=== PATIENT | female | born 1945 | race Hispanic/Latino ===

== ENCOUNTER 2017-08-10 22:16 | Emergency (ER) | payer BC, MEDICARE ==
[2017-08-10 23:08] LABS: BASOPHILS % (AUTO) 0.6 % (0.0-5.0); EOSINOPHILS % (AUTO) 0.8 % (0.0-8.0); HEMATOCRIT 38.4 % (36-48); LYMPHOCYTES % (AUTO) 19.1 % (21.0-51.0); MEAN CORPUSCULAR HEMOGLOBIN 29.9 pg (27.0-33.0); MEAN CORPUSCULAR HGB CONC 34.1 g/dL (32.0-36.0); MEAN CORPUSCULAR VOLUME 87.7 fL (79-99); MONOCYTES % (AUTO) 12.3 % (3.0-13.0); NEUTROPHILS % (AUTO) 67.2 % (40.0-77.0); PLATELET COUNT (AUTO) 292 K/uL (130-400); RED BLOOD CELL COUNT(AUTO) 4.38 MIL/uL (4.00-5.50); WHITE BLOOD COUNT (AUTO) 7.7 K/uL (4.8-10.8)
[2017-08-10 23:08] LABS: APPEARANCE,URINE Clear (CLEAR); BILIRUBIN,URINE Negative (NEGATIVE); COLOR,URINE Yellow (YELLOW); GLUCOSE, URINE (UA) Negative (NEGATIVE); KETONES,URINE Trace mg/dL (NEGATIVE); LEUKOCYTE ESTERASE ,URINE Negative (NEGATIVE); NITRATE,URINE Negative (NEGATIVE); OCCULT BLOOD,URINE Negative (NEGATIVE); PROTEIN,URINE POS 1+ (NEGATIVE)
[2017-08-10] MEDS ORDERED: ONDANSETRON HCL 4 MG/2 ML VIAL ONE (23:16)
[2017-08-10] MEDS ORDERED: MORPHINE SULFATE 2 MG/ML 1ML SYG ONE (23:17)
[2017-08-10 23:20] LABS: BACTERIA,URINE Rare /HPF (None Seen); RBC,URINE None Seen /HPF (0-1)
[2017-08-10 23:22] LABS: POTASSIUM 3.2 mmol/L (3.5-5.1)
[2017-08-10 23:26] LABS: ALBUMIN 3.4 g/dL (3.5-5.0); BILIRUBIN,TOTAL 0.6 mg/dL (0.2-1.0); TOTAL PROTEIN, SERUM 7.5 g/dL (6.0-8.3)
[2017-08-11] MEDS ORDERED: SODIUM CHLORIDE 0.9% 1000ML 1,000 ML IV ONE (00:14)
[2017-08-11] MEDS ORDERED: POTASSIUM BICARB/CIT AC 25 MEQ TABLET.EFF ONE (00:15)
[2017-08-11] MEDS ORDERED: LIDOCAINE 5% TOPICAL PATCH TP ONE (02:45)
== END 2017-08-11 02:59 | disposition home or self-care (01) ==
LOC: EDH 22:16
DX: E87.6 Hypokalemia (principal); R10.9 Unspecified abdominal pain; M06.9 Rheumatoid arthritis, unspecified; J44.9 Chronic obstructive pulmonary disease, unspecified; I10 Essential (primary) hypertension; M32.9 Systemic lupus erythematosus, unspecified
CPT/HCPCS: 36415; 76700; 80053; 81001; 83690; 85025; 87088; 96361; 96374; 96375; 99285; J2405; J7030

== ENCOUNTER 2023-06-01 19:22 | Inpatient (IN) | payer OTHER ==
[~2023-06-01] VITALS: Ht 157.5 cm; Wt 107.4 kg
[~2023-06-01 19:22] MED LIST: CLON0.5T4 PO; DULO60CA64 PO; FOLI0.8T3 PO; LEFL20TA18 PO; LOSA100T59 PO; LOVA10TA2 PO; MAG OXIDE PO; METO50TA18 PO; OMEP20CA12 PO; PILOCARPINE; PRED5TAB PO; SULF1TAB42 PO; TIZA-211 PO; TOFA11TA PO
[2023-06-01 20:02] LABS: BASOPHILS # (AUTO) 0.06 K/uL (0.00-0.20); BASOPHILS % (AUTO) 0.3 % (0.0-5.0); EOSINOPHILS # (AUTO) 0.14 K/uL (0.00-0.70); EOSINOPHILS % (AUTO) 0.8 % (0.0-8.0); HEMATOCRIT 33.3 % (36-48); IMMATURE GRANULOCYTE ABSOLUTE 0.34 K/uL (0-1); LYMPHOCYTES # (AUTO) 1.2 K/uL (1.0-4.8); LYMPHOCYTES % (AUTO) 6.6 % (21.0-51.0); MEAN CORPUSCULAR HEMOGLOBIN 31.1 pg (27.0-33.0); MEAN CORPUSCULAR HGB CONC 33.6 g/dL (32.0-36.0); MEAN CORPUSCULAR VOLUME 92.5 fL (79-99); MONOCYTES % (AUTO) 5.4 % (3.0-13.0); NEUTROPHILS # (AUTO) 14.8 K/uL (1.8-7.7); PLATELET COUNT (AUTO) 313 K/uL (130-400); RED CELL DISTRIBUTION WIDTH 13.6 % (11.0-15.5); WHITE BLOOD COUNT (AUTO) 17.5 K/uL (4.8-10.8)
[2023-06-01 20:17] LABS: INR 0.94 (0.85-1.15)
[2023-06-01 20:19] LABS: PARTIAL THROMBOPLASTIN TIME 27.7 SEC (26.3-35.5)
[2023-06-01] MEDS ORDERED: VANCOMYCIN 1G/250ML KIT 250 ML IV ONE (20:29)
[2023-06-01] MEDS ORDERED: ZOSYN 3.375GM+NS 50ML 50 ML ONE (20:29)
[2023-06-01] MEDS ORDERED: ZOSYN 3.375GM +NS 50ML IV ONE (20:30)
[2023-06-01] MEDS ORDERED: 0.9%NACL 1000ML 2,500 ML IV ONE (20:30)
[2023-06-01] MEDS ORDERED: VANCOMYCIN KIT 1 GM/250 ML IV.KIT IV ONE (20:30)
[2023-06-01 21:08] LABS: ALBUMIN 2.8 g/dL (3.5-5.0); BILIRUBIN,TOTAL 0.4 mg/dL (0.2-1.0); CREATININE 2.1 mg/dL (0.5-1.5); MAGNESIUM 1.6 mg/dL (1.80-2.40); POTASSIUM 5.1 mmol/L (3.5-5.1); TOTAL PROTEIN, SERUM 7.5 g/dL (6.0-8.3)
[2023-06-01] MEDS ORDERED: HYDRALAZINE 20MG/ML VIAL IV PRN (22:00)
[2023-06-01] MEDS ORDERED: VANCOMYCIN PROTOCOL PER PHARMACY IV SCH (22:00)
[2023-06-01 23:00] VITALS: BP 132/41; PULSE 60; RESP 16
[2023-06-01] MEDS ORDERED: ACETAMINOPHEN 500 MG TABLET PO ONE (23:00)
[2023-06-01] MEDS ORDERED: MAGNESIUM 2GM PREMIX 50ML 50 ML IV SCH (23:00)
[2023-06-01] MEDS: LACTATED RINGERS 1000ML 1,000 ML IV SCH (23:19)
[2023-06-01 23:50] VITALS: BP 96/51; PULSE 100; RESP 18; O2SAT 96
[2023-06-02] VITALS (7 sets, daily range): BP systolic 114–131; BP diastolic 60–78; PULSE 77–114; RESP 20–22; O2SAT 94–95
[2023-06-02] MEDS ORDERED: LOSA100T59 PO (00:24)
[2023-06-02] MEDS ORDERED: SPIR25TA6 PO (00:24)
[2023-06-02] MEDS ORDERED: HYDR200T75 PO (00:24)
[2023-06-02] MEDS ORDERED: CLIN-141 PO (00:24)
[2023-06-02] MEDS ORDERED: CLON0.122 PO (00:24)
[2023-06-02] MEDS ORDERED: DULO60CA64 PO (00:24)
[2023-06-02] MEDS ORDERED: PILOCARPINE PO (00:24)
[2023-06-02] MEDS ORDERED: METO50TA18 PO (00:24)
[2023-06-02] MEDS ORDERED: HYDROCHLOROTHIAZIDE PO (00:24)
[2023-06-02] MEDS ORDERED: PRED5TAB PO (00:24)
[2023-06-02] MEDS ORDERED: TIZA-211 PO (00:24)
[2023-06-02] MEDS ORDERED: LOVA10TA2 PO (00:24)
[2023-06-02] MEDS: ZOSYN 3.375GM+NS 50ML 50 ML IV SCH ×2 (05:14→17:52)
[2023-06-02] MEDS ORDERED: MORPHINE 2 MG SYG IVP ONE ×2 (05:30→12:00)
[2023-06-02 05:34] LABS: APPEARANCE,URINE CLEAR (CLEAR); BILIRUBIN,URINE NEGATIVE (NEGATIVE); COLOR,URINE LIGHT-YELLOW (YELLOW); GLUCOSE, URINE (UA) NEGATIVE (NEGATIVE); KETONES,URINE NEGATIVE (NEGATIVE); LEUKOCYTE ESTERASE ,URINE 250 Leu/uL (NEGATIVE); NITRATE,URINE NEGATIVE (NEGATIVE); OCCULT BLOOD,URINE NEGATIVE (NEGATIVE); PROTEIN,URINE NEGATIVE (NEGATIVE); UROBILINOGEN,URINE 0.2 mg/dL (0.2-1.0)
[2023-06-02 06:24] LABS: BACTERIA,URINE RARE /HPF (None Seen); NON-SQUAMOUS EPITHELIAL CELL 1 /HPF (0-2); SQUAMOUS EPITHELIAL CELL,UR FEW /HPF (0-2); UNCLASSIFIED CRYSTAL 2 /HPF (None Seen)
[2023-06-02] MEDS ORDERED: VANCOMYCIN 500MG+NS 100ML 100 ML IV ONE (06:50)
[2023-06-02] MEDS: LACTATED RINGERS 1000ML 1,000 ML IV SCH (08:00)
[2023-06-02] MEDS ORDERED: HYDROCODONE/ACETAMINOPHEN 5/325 MG TAB PO PRN (08:00)
[2023-06-02] MEDS ORDERED: PHARMACY COMMUNICATION MISC SCH (08:00)
[2023-06-02] MEDS ORDERED: KETOROLAC 15MG/ML VIAL (15MG/ML) IV PRN (08:00)
[2023-06-02] MEDS: ONDANSETRON 4MG INJ IVP PRN (08:26)
[2023-06-02] MEDS ORDERED: HYDROCODONE/ACETAMINOPHEN 10/325 MG TAB PO PRN ×2 (08:30→12:00)
[2023-06-02] MEDS: ENOXAPARIN SODIUM 30 MG/0.3 ML SQ SCH ×2 (08:31→23:53)
[2023-06-02] MEDS: FAMOTIDINE 20MG TAB PO SCH ×2 (08:31→20:14)
[2023-06-02] MEDS ORDERED: FAMOTIDINE 20MG VIAL IV SCH (09:00)
[2023-06-02] MEDS ORDERED: MORPHINE 2 MG SYG ONE (11:59)
[2023-06-02] MEDS ORDERED: IOHEXOL-350 75 ML VIAL IV ONE (15:32)
[2023-06-03] VITALS (33 sets, daily range): BP systolic 105–155; BP diastolic 43–82; PULSE 76–113; RESP 17–26; O2SAT 95–99
[2023-06-03] MEDS: ZOSYN 3.375GM+NS 50ML 50 ML IV SCH ×3 (04:04→20:05)
[2023-06-03] MEDS: LACTATED RINGERS 1000ML 1,000 ML IV SCH ×2 (04:05→14:41)
[2023-06-03 04:20] LABS: INR 0.98 (0.85-1.15); PROTHROMBIN TIME 11.4 SEC (9.6-11.6)
[2023-06-03 04:21] LABS: PARTIAL THROMBOPLASTIN TIME 33.9 SEC (26.3-35.5)
[2023-06-03] MEDS: ALBUTEROL 0.083% 2.5 MG/3 ML INH IH PRN ×3 (04:37→14:09)
[2023-06-03 05:48] LABS: BASOPHILS # (AUTO) 0.08 K/uL (0.00-0.20); BASOPHILS % (AUTO) 0.4 % (0.0-5.0); EOSINOPHILS # (AUTO) 0.15 K/uL (0.00-0.70); EOSINOPHILS % (AUTO) 0.8 % (0.0-8.0); HEMATOCRIT 30.1 % (36-48); IMMATURE GRANULOCYTE ABSOLUTE 0.27 K/uL (0-1); LYMPHOCYTES # (AUTO) 0.5 K/uL (1.0-4.8); LYMPHOCYTES % (AUTO) 2.6 % (21.0-51.0); MEAN CORPUSCULAR HEMOGLOBIN 31.2 pg (27.0-33.0); MEAN CORPUSCULAR HGB CONC 32.2 g/dL (32.0-36.0); MEAN CORPUSCULAR VOLUME 96.8 fL (79-99); MONOCYTES # (AUTO) 1.4 K/uL (0.1-1.0); MONOCYTES % (AUTO) 7.3 % (3.0-13.0); NEUTROPHILS # (AUTO) 16.9 K/uL (1.8-7.7); NEUTROPHILS % (AUTO) 87.5 % (40.0-77.0); PLATELET COUNT (AUTO) 272 K/uL (130-400); RED BLOOD CELL COUNT(AUTO) 3.11 MIL/uL (4.00-5.50); RED CELL DISTRIBUTION WIDTH 14.4 % (11.0-15.5); WHITE BLOOD COUNT (AUTO) 19.3 K/uL (4.8-10.8)
[2023-06-03 06:20] LABS: ALBUMIN 2.3 g/dL (3.5-5.0); BILIRUBIN,TOTAL 0.3 mg/dL (0.2-1.0); CREATININE 2.3 mg/dL (0.5-1.5); POTASSIUM 5.7 mmol/L (3.5-5.1); TOTAL PROTEIN, SERUM 6.6 g/dL (6.0-8.3)
[2023-06-03 06:43] LABS: BAND NEUTROPHILS % (MANUAL) 2 % (0-2); BASOPHILS % (MANUAL) 1 % (0-2); EOSINOPHILS % (MANUAL) 1 % (1-6); LYMPHOCYTES % (MANUAL) 6 % (22-44); MAN.DIFF COMMENT-IMPRESSION MANUAL DIFFERENTIAL; MONOCYTES % (MANUAL) 6 % (2-9); PLATELET MORPHOLOGY COMMENT ADEQUATE; SEGMENTED NEUTROPHILS % 84 % (40-70); TOTAL CELLS COUNTED 100; WBC MORPHOLOGY VACUOLATION 1+
[2023-06-03] MEDS ORDERED: MORPHINE 2 MG SYG IVP ONE (07:00)
[2023-06-03] MEDS ORDERED: SOLU-MEDROL 125MG VIAL IVP ONE (07:00)
[2023-06-03] MEDS: FAMOTIDINE 20MG TAB PO SCH ×2 (08:11→20:05)
[2023-06-03] MEDS: KAYEXALATE 15GM/60ML PO ONE ×2 (10:21→19:10)
[2023-06-03] MEDS ORDERED: FAMOTIDINE 20MG VIAL IV ONE (11:22)
[2023-06-03] MEDS ORDERED: PROPOFOL 10 MG/ML 20ML VIAL IV ONE (11:26)
[2023-06-03] MEDS ORDERED: FENTANYL CITRATE PF 50 MCG/1 ML 2ML VIAL ONE ×2 (11:26→14:07)
[2023-06-03] MEDS ORDERED: MIDAZOLAM HCL 1 MG/ML 2ML VIAL ONE (11:26)
[2023-06-03] MEDS ORDERED: LIDOCAINE PF 100MG/5ML (2%) SYRINGE 5ML ONE (11:26)
[2023-06-03] MEDS ORDERED: ROCURONIUM 10MG/1ML SYR 10 MG/ML ML ONE (11:36)
[2023-06-03] MEDS ORDERED: CLINDAMYCIN IVPB 600MG/50ML 50 ML IV ONE (12:13)
[2023-06-03] MEDS ORDERED: ONDANSETRON 4MG INJ ONE (12:20)
[2023-06-03] MEDS ORDERED: NEOSTIGMINE METHYLSULFATE 1MG/ML IV ONE (12:31)
[2023-06-03] MEDS ORDERED: GLYCOPYRROLATE 1 MG/5 ML SYRINGE ONE (12:45)
[2023-06-03] MEDS ORDERED: IPRATROPIUM/ALBUTEROL SULFATE 3 ML SOLUTION IH ONE (13:35)
[2023-06-03] MEDS: SODIUM CHLORIDE 1,000 MG TAB PO SCH ×2 (14:00→20:05)
[2023-06-03] MEDS ORDERED: VANCOMYCIN 1G/250ML KIT 250 ML IV SCH (20:00)
[2023-06-03] MEDS: ACETAMINOPHEN 325 MG TAB PO PRN (20:13)
[2023-06-04] VITALS (9 sets, daily range): BP systolic 126–161; BP diastolic 68–83; PULSE 89–106; RESP 16–20; O2SAT 95–97
[2023-06-04 04:50] LABS: BASOPHILS # (AUTO) 0.04 K/uL (0.00-0.20); BASOPHILS % (AUTO) 0.2 % (0.0-5.0); EOSINOPHILS # (AUTO) 0.22 K/uL (0.00-0.70); EOSINOPHILS % (AUTO) 0.9 % (0.0-8.0); HEMATOCRIT 27.3 % (36-48); IMMATURE GRANULOCYTE ABSOLUTE 0.62 K/uL (0-1); LYMPHOCYTES # (AUTO) 0.2 K/uL (1.0-4.8); LYMPHOCYTES % (AUTO) 0.8 % (21.0-51.0); MEAN CORPUSCULAR HEMOGLOBIN 31.1 pg (27.0-33.0); MEAN CORPUSCULAR HGB CONC 32.6 g/dL (32.0-36.0); MEAN CORPUSCULAR VOLUME 95.5 fL (79-99); MONOCYTES # (AUTO) 0.5 K/uL (0.1-1.0); NEUTROPHILS # (AUTO) 24.3 K/uL (1.8-7.7); NEUTROPHILS % (AUTO) 93.7 % (40.0-77.0); NUCLEATED RED BLOOD CELLS 0.1 % (0.0-0.19); PLATELET COUNT (AUTO) 290 K/uL (130-400); RED BLOOD CELL COUNT(AUTO) 2.86 MIL/uL (4.00-5.50); RED CELL DISTRIBUTION WIDTH 14.4 % (11.0-15.5); WHITE BLOOD COUNT (AUTO) 25.9 K/uL (4.8-10.8)
[2023-06-04 05:13] LABS: ALBUMIN 2.1 g/dL (3.5-5.0); BILIRUBIN,TOTAL 0.2 mg/dL (0.2-1.0); CREATININE 3.3 mg/dL (0.5-1.5); POTASSIUM 5.3 mmol/L (3.5-5.1); TOTAL PROTEIN, SERUM 6.5 g/dL (6.0-8.3)
[2023-06-04] MEDS: LACTATED RINGERS 1000ML 1,000 ML IV SCH (05:25)
[2023-06-04] MEDS: ZOSYN 3.375GM+NS 50ML 50 ML IV SCH ×2 (08:17→21:13)
[2023-06-04] MEDS: ENOXAPARIN SODIUM 30 MG/0.3 ML SQ SCH (08:18)
[2023-06-04] MEDS: FAMOTIDINE 20MG TAB PO SCH ×2 (08:19→21:12)
[2023-06-04] MEDS: SODIUM CHLORIDE 1,000 MG TAB PO SCH ×3 (08:27→21:12)
[2023-06-05] VITALS (9 sets, daily range): BP systolic 130–138; BP diastolic 66–78; PULSE 70–107; RESP 18–21; O2SAT 92–98
[2023-06-05] MEDS: LACTATED RINGERS 1000ML 1,000 ML IV SCH (01:11)
[2023-06-05] MEDS: ACETAMINOPHEN 325 MG TAB PO PRN (01:12)
[2023-06-05] MEDS: CEFEPIME HCL 1 GM VIAL IVPB SCH (08:44)
[2023-06-05] MEDS: ENOXAPARIN SODIUM 30 MG/0.3 ML SQ SCH (08:51)
[2023-06-05] MEDS: DULOXETINE HCL 30 MG CAP PO SCH ×2 (08:53→21:00)
[2023-06-05] MEDS: BENZONATATE 100 MG CAPSULE PO SCH ×2 (08:53→17:08)
[2023-06-05] MEDS: SODIUM CHLORIDE 1,000 MG TAB PO SCH ×4 (08:54→21:20)
[2023-06-05] MEDS: PILOCARPINE HCL 5 MG TABLET PO SCH ×4 (08:54→21:20)
[2023-06-05] MEDS: FAMOTIDINE 20MG TAB PO SCH (08:54)
[2023-06-05 08:57] LABS: HEMATOCRIT 25.9 % (36-48); MEAN CORPUSCULAR HEMOGLOBIN 31.2 pg (27.0-33.0); MEAN CORPUSCULAR HGB CONC 33.2 g/dL (32.0-36.0); MEAN CORPUSCULAR VOLUME 93.8 fL (79-99); NUCLEATED RED BLOOD CELLS 0.1 % (0.0-0.19); RED BLOOD CELL COUNT(AUTO) 2.76 MIL/uL (4.00-5.50); RED CELL DISTRIBUTION WIDTH 14.6 % (11.0-15.5); WHITE BLOOD COUNT (AUTO) 21.8 K/uL (4.8-10.8)
[2023-06-05] MEDS ORDERED: LOSARTAN 100 MG TABLET PO SCH (09:00)
[2023-06-05 09:09] LABS: CREATININE 3.9 mg/dL (0.5-1.5); POTASSIUM 4.6 mmol/L (3.5-5.1)
[2023-06-05 09:52] LABS: ABG BASE EXCESS -6.5 mmol/L (-2.0-3.0); ABG HCO3 19.9 mmol/L (21.0-28.0); ABG OXYGEN SATURATION 96.7 % (95.0-99.0); ABG PCO2 43 mmHg (32-45); ABG PH 7.285 (7.35-7.450); DEVICE COMMENT RR 2LNC; PO2, ARTERIAL BG 97.8 mmHg (83.0-108.0)
[2023-06-05] MEDS ORDERED: MORPHINE 2 MG SYG IVP ONE (13:30)
[2023-06-05] MEDS: METOPROLOL TARTRATE 50 MG TAB PO SCH (17:08)
[2023-06-05] MEDS ORDERED: NON-FORMULARY MEDICATION 1 EACH (Lovastatin 10 MG) PO SCH (21:00)
[2023-06-05] MEDS: TIZANIDINE HCL 2 MG TABLET PO SCH (21:00)
[2023-06-05] MEDS: CLONAZEPAM 0.125 MG PO SCH (21:00)
[2023-06-05] MEDS ORDERED: LACTULOSE 20 GM/30 ML UDCUP PO ONE (23:30)
[2023-06-06] VITALS (13 sets, daily range): BP systolic 122–146; BP diastolic 70–92; PULSE 66–103; RESP 18–24; O2SAT 94–100
[2023-06-06] MEDS: BENZONATATE 100 MG CAPSULE PO SCH ×3 (00:30→16:30)
[2023-06-06 04:47] LABS: HEMATOCRIT 29.2 % (36-48); MEAN CORPUSCULAR HEMOGLOBIN 31.2 pg (27.0-33.0); MEAN CORPUSCULAR HGB CONC 31.8 g/dL (32.0-36.0); RED BLOOD CELL COUNT(AUTO) 2.98 MIL/uL (4.00-5.50); RED CELL DISTRIBUTION WIDTH 15.1 % (11.0-15.5); WHITE BLOOD COUNT (AUTO) 12.3 K/uL (4.8-10.8)
[2023-06-06 04:59] LABS: CREATININE 4.2 mg/dL (0.5-1.5); PHOSPHORUS 7.3 mg/dL (2.5-4.9); POTASSIUM 5.2 mmol/L (3.5-5.1)
[2023-06-06] MEDS: METOPROLOL TARTRATE 50 MG TAB PO SCH ×2 (07:30→20:14)
[2023-06-06] MEDS: FAMOTIDINE 20MG TAB PO SCH (08:53)
[2023-06-06] MEDS: PILOCARPINE HCL 5 MG TABLET PO SCH ×3 (08:53→21:00)
[2023-06-06] MEDS: SODIUM CHLORIDE 1,000 MG TAB PO SCH (08:54)
[2023-06-06] MEDS: DULOXETINE HCL 30 MG CAP PO SCH ×2 (08:54→21:29)
[2023-06-06] MEDS: CEFEPIME HCL 1 GM VIAL IVPB SCH (08:55)
[2023-06-06] MEDS: ENOXAPARIN SODIUM 30 MG/0.3 ML SQ SCH (08:56)
[2023-06-06] MEDS: LACTULOSE 20 GM/30 ML UDCUP PO SCH ×2 (08:59→21:29)
[2023-06-06 09:37] LABS: ABG BASE EXCESS -7.8 mmol/L (-2.0-3.0); ABG HCO3 18.7 mmol/L (21.0-28.0); ABG OXYGEN SATURATION 96.4 % (95.0-99.0); ABG PCO2 42 mmHg (32-45); ABG PH 7.265 (7.35-7.450); CARBON MONOXIDE 0.3; HHb 3.6; PO2, ARTERIAL BG 88.5 mmHg (83.0-108.0); VENT MODE, BG HOME CPAP (ROOM AIR)
[2023-06-06] MEDS: LINEZOLID 600 MG/ISO-OSM 300 ML IV SCH (12:29)
[2023-06-06] MEDS ORDERED: FUROSEMIDE 40MG VIAL IV ONE (14:30)
[2023-06-06] MEDS: METRONIDAZOLE 500MG/100ML BAG 100 ML IVPB SCH ×2 (15:26→21:29)
[2023-06-06] MEDS: SODIUM BICARB 50MEQ 50ML VIAL IV SCH (19:00)
[2023-06-06] MEDS: CLONAZEPAM 0.125 MG PO SCH (19:18)
[2023-06-06 19:34] LABS: ABG HCO3 20.5 mmol/L (21.0-28.0); ABG PCO2 45 mmHg (32-45); ABG PH 7.279 (7.35-7.450); CARBON MONOXIDE 0.3; PO2, ARTERIAL BG 161.8 mmHg (83.0-108.0)
[2023-06-06] MEDS: TIZANIDINE HCL 2 MG TABLET PO SCH (20:29)
[2023-06-06] MEDS: SODIUM BICARBONATE 650 MG TAB PO SCH (21:00)
[2023-06-06] MEDS ORDERED: SODIUM BICARB 50MEQ 50ML VIAL IV ONE (21:00)
[2023-06-06] MEDS: ONDANSETRON 4MG INJ IVP PRN (22:14)
[2023-06-06 23:21] LABS: SARS-CoV-2, RNA, NAAT NEGATIVE SARS CoV-2 (NEGATIVE)
[2023-06-06 23:24] LABS: INFLUENZA TYPE A Negative For Type A (NEGATIVE); INFLUENZA TYPE B Negative For Type B (NEGATIVE)
[2023-06-07] VITALS (10 sets, daily range): BP systolic 109–145; BP diastolic 64–96; PULSE 62–79; RESP 17–28; O2SAT 97–100
[2023-06-07] MEDS: LINEZOLID 600 MG/ISO-OSM 300 ML IV SCH ×2 (00:16→15:34)
[2023-06-07] MEDS: BENZONATATE 100 MG CAPSULE PO SCH ×3 (00:17→15:34)
[2023-06-07 05:10] LABS: HEMATOCRIT 25.7 % (36-48); MEAN CORPUSCULAR HGB CONC 32.7 g/dL (32.0-36.0); MEAN CORPUSCULAR VOLUME 94.8 fL (79-99); RED BLOOD CELL COUNT(AUTO) 2.71 MIL/uL (4.00-5.50); RED CELL DISTRIBUTION WIDTH 15.1 % (11.0-15.5); WHITE BLOOD COUNT (AUTO) 10.7 K/uL (4.8-10.8)
[2023-06-07 05:20] LABS: BILIRUBIN,TOTAL 0.3 mg/dL (0.2-1.0); POTASSIUM 4.9 mmol/L (3.5-5.1)
[2023-06-07] MEDS: METRONIDAZOLE 500MG/100ML BAG 100 ML IVPB SCH ×3 (06:05→22:20)
[2023-06-07] MEDS ORDERED: DEXTROSE 50%-WATER 50 ML DISP.SYRIN IV PRN (07:30)
[2023-06-07] MEDS ORDERED: GLUCAGON 1MG KIT 1 MG ML IM PRN (07:30)
[2023-06-07] MEDS: SODIUM BICARBONATE 650 MG TAB PO SCH ×3 (08:52→21:15)
[2023-06-07] MEDS: CEFEPIME HCL 1 GM VIAL IVPB SCH (08:52)
[2023-06-07] MEDS: DULOXETINE HCL 30 MG CAP PO SCH (08:52)
[2023-06-07] MEDS: FAMOTIDINE 20MG TAB PO SCH (08:52)
[2023-06-07] MEDS: METOPROLOL TARTRATE 50 MG TAB PO SCH ×2 (08:52→15:34)
[2023-06-07] MEDS: LACTULOSE 20 GM/30 ML UDCUP PO SCH (08:52)
[2023-06-07] MEDS: ENOXAPARIN SODIUM 30 MG/0.3 ML SQ SCH (08:53)
[2023-06-07] MEDS: PILOCARPINE HCL 5 MG TABLET PO SCH ×3 (09:39→21:14)
[2023-06-07] MEDS: ONDANSETRON 4MG INJ IVP PRN ×2 (09:59→16:05)
[2023-06-07] MEDS: FUROSEMIDE 40MG VIAL IV SCH (15:42)
[2023-06-07] MEDS: METOCLOPRAMIDE 10 MG/2 ML VIAL IVP SCH ×2 (17:32→22:20)
[2023-06-07] MEDS: SODIUM BICARB 50MEQ 50ML VIAL IV SCH (19:00)
[2023-06-07] MEDS: TIZANIDINE HCL 2 MG TABLET PO SCH (21:00)
[2023-06-07] MEDS: CLONAZEPAM 0.125 MG PO SCH (21:00)
[2023-06-08] VITALS (10 sets, daily range): BP systolic 130–147; BP diastolic 63–75; PULSE 64–79; RESP 14–23; O2SAT 97–98
[2023-06-08] MEDS: LINEZOLID 600 MG/ISO-OSM 300 ML IV SCH ×2 (00:26→11:41)
[2023-06-08] MEDS: FUROSEMIDE 40MG VIAL IV SCH ×2 (00:26→11:41)
[2023-06-08] MEDS: BENZONATATE 100 MG CAPSULE PO SCH ×3 (00:26→16:33)
[2023-06-08 03:47] LABS: HEMATOCRIT 26.7 % (36-48); MEAN CORPUSCULAR HEMOGLOBIN 31.3 pg (27.0-33.0); RED BLOOD CELL COUNT(AUTO) 2.81 MIL/uL (4.00-5.50); RED CELL DISTRIBUTION WIDTH 14.6 % (11.0-15.5); WHITE BLOOD COUNT (AUTO) 11.6 K/uL (4.8-10.8)
[2023-06-08 04:00] LABS: CREATININE 2.9 mg/dL (0.5-1.5); POTASSIUM 4.6 mmol/L (3.5-5.1)
[2023-06-08] MEDS: METOCLOPRAMIDE 10 MG/2 ML VIAL IVP SCH ×4 (04:19→21:57)
[2023-06-08] MEDS: METRONIDAZOLE 500MG/100ML BAG 100 ML IVPB SCH ×3 (06:13→21:57)
[2023-06-08] MEDS: LACTULOSE 20 GM/30 ML UDCUP PO SCH (08:43)
[2023-06-08] MEDS: CEFEPIME HCL 1 GM VIAL IVPB SCH (08:44)
[2023-06-08] MEDS: PILOCARPINE HCL 5 MG TABLET PO SCH ×3 (08:44→21:57)
[2023-06-08] MEDS: FAMOTIDINE 20MG TAB PO SCH (08:45)
[2023-06-08] MEDS: METOPROLOL TARTRATE 50 MG TAB PO SCH ×2 (08:45→16:33)
[2023-06-08] MEDS: SODIUM BICARBONATE 650 MG TAB PO SCH (08:45)
[2023-06-08] MEDS: ENOXAPARIN SODIUM 30 MG/0.3 ML SQ SCH (08:46)
[2023-06-08 10:41] LABS: INR 1.01 (0.85-1.15); PROTHROMBIN TIME 11.7 SEC (9.6-11.6)
[2023-06-08] MEDS: SODIUM BICARB 50MEQ 50ML VIAL IV SCH (19:00)
[2023-06-08] MEDS: TIZANIDINE HCL 2 MG TABLET PO SCH (19:12)
[2023-06-08] MEDS: CLONAZEPAM 0.125 MG PO SCH (19:12)
[2023-06-09] VITALS (9 sets, daily range): BP systolic 108–150; BP diastolic 61–83; PULSE 66–74; RESP 18–30; O2SAT 96–99
[2023-06-09] MEDS: BENZONATATE 100 MG CAPSULE PO SCH ×4 (00:20→23:48)
[2023-06-09] MEDS: METOCLOPRAMIDE 10 MG/2 ML VIAL IVP SCH ×2 (03:53→10:58)
[2023-06-09] MEDS: METRONIDAZOLE 500MG/100ML BAG 100 ML IVPB SCH ×3 (06:17→21:51)
[2023-06-09] MEDS: METOPROLOL TARTRATE 50 MG TAB PO SCH ×2 (06:17→15:42)
[2023-06-09] MEDS: LACTULOSE 20 GM/30 ML UDCUP PO SCH (07:34)
[2023-06-09] MEDS: CEFEPIME HCL 1 GM VIAL IVPB SCH (08:25)
[2023-06-09] MEDS: PILOCARPINE HCL 5 MG TABLET PO SCH ×3 (08:26→20:03)
[2023-06-09] MEDS: FAMOTIDINE 20MG TAB PO SCH (08:26)
[2023-06-09] MEDS: ENOXAPARIN SODIUM 30 MG/0.3 ML SQ SCH (08:28)
[2023-06-09] MEDS ORDERED: DULOXETINE HCL 30 MG CAP PO SCH (09:00)
[2023-06-09 11:28] LABS: HEMATOCRIT 28.6 % (36-48); MEAN CORPUSCULAR HEMOGLOBIN 30.9 pg (27.0-33.0); MEAN CORPUSCULAR HGB CONC 32.9 g/dL (32.0-36.0); MEAN CORPUSCULAR VOLUME 94.1 fL (79-99); RED BLOOD CELL COUNT(AUTO) 3.04 MIL/uL (4.00-5.50); RED CELL DISTRIBUTION WIDTH 14.3 % (11.0-15.5); WHITE BLOOD COUNT (AUTO) 11.5 K/uL (4.8-10.8)
[2023-06-09 11:38] LABS: CREATININE 1.7 mg/dL (0.5-1.5); POTASSIUM 3.9 mmol/L (3.5-5.1)
[2023-06-09] MEDS: ONDANSETRON 4MG INJ IVP PRN (16:17)
[2023-06-09] MEDS: TIZANIDINE HCL 2 MG TABLET PO SCH (20:03)
[2023-06-09] MEDS: CLONAZEPAM 0.125 MG PO SCH (20:17)
[2023-06-10] VITALS (12 sets, daily range): BP systolic 98–151; BP diastolic 57–74; PULSE 61–87; RESP 17–21; O2SAT 96–100
[2023-06-10 05:01] LABS: BASOPHILS # (AUTO) 0.03 K/uL (0.00-0.20); BASOPHILS % (AUTO) 0.3 % (0.0-5.0); EOSINOPHILS # (AUTO) 0.11 K/uL (0.00-0.70); EOSINOPHILS % (AUTO) 1.1 % (0.0-8.0); IMMATURE GRANULOCYTE ABSOLUTE 0.63 K/uL (0-1); LYMPHOCYTES # (AUTO) 0.9 K/uL (1.0-4.8); LYMPHOCYTES % (AUTO) 8.2 % (21.0-51.0); MEAN CORPUSCULAR HEMOGLOBIN 31.3 pg (27.0-33.0); MEAN CORPUSCULAR HGB CONC 32.9 g/dL (32.0-36.0); MEAN CORPUSCULAR VOLUME 95.2 fL (79-99); MONOCYTES # (AUTO) 0.8 K/uL (0.1-1.0); MONOCYTES % (AUTO) 7.3 % (3.0-13.0); PLATELET COUNT (AUTO) 305 K/uL (130-400); RED BLOOD CELL COUNT(AUTO) 2.94 MIL/uL (4.00-5.50); RED CELL DISTRIBUTION WIDTH 14.1 % (11.0-15.5); WHITE BLOOD COUNT (AUTO) 10.4 K/uL (4.8-10.8)
[2023-06-10 05:19] LABS: CREATININE 1.3 mg/dL (0.5-1.5); PHOSPHORUS 2.8 mg/dL (2.5-4.9); POTASSIUM 3.8 mmol/L (3.5-5.1)
[2023-06-10] MEDS: METRONIDAZOLE 500MG/100ML BAG 100 ML IVPB SCH (05:31)
[2023-06-10] MEDS: LACTULOSE 20 GM/30 ML UDCUP PO SCH (09:35)
[2023-06-10] MEDS: BENZONATATE 100 MG CAPSULE PO SCH (09:35)
[2023-06-10] MEDS: DULOXETINE HCL 30 MG CAP PO SCH (09:35)
[2023-06-10] MEDS: FAMOTIDINE 20MG TAB PO SCH (09:35)
[2023-06-10] MEDS: PILOCARPINE HCL 5 MG TABLET PO SCH ×3 (09:36→20:31)
[2023-06-10] MEDS: ENOXAPARIN SODIUM 30 MG/0.3 ML SQ SCH (09:37)
[2023-06-10] MEDS: CEFEPIME HCL 1 GM VIAL IVPB SCH (09:37)
[2023-06-10] MEDS: METOPROLOL TARTRATE 50 MG TAB PO SCH ×2 (10:12→16:18)
[2023-06-10] MEDS: ONDANSETRON 4MG INJ IVP PRN (11:34)
[2023-06-10] MEDS: METRONIDAZOLE 500 MG TABLET PO SCH ×2 (14:45→20:31)
[2023-06-10] MEDS: ACETAMINOPHEN WITH CODEINE 1 TAB TAB PO PRN (16:27)
[2023-06-10] MEDS: NYSTATIN 15 GM POWDER TP SCH (20:31)
[2023-06-10] MEDS: TIZANIDINE HCL 2 MG TABLET PO SCH (20:31)
[2023-06-10] MEDS: CLONAZEPAM 0.125 MG PO SCH (20:34)
[2023-06-11] VITALS (9 sets, daily range): BP systolic 113–141; BP diastolic 55–69; PULSE 62–77; RESP 18–21; O2SAT 94–95
[2023-06-11 03:43] LABS: BASOPHILS # (AUTO) 0.05 K/uL (0.00-0.20); BASOPHILS % (AUTO) 0.5 % (0.0-5.0); EOSINOPHILS # (AUTO) 0.12 K/uL (0.00-0.70); EOSINOPHILS % (AUTO) 1.3 % (0.0-8.0); HEMATOCRIT 27.3 % (36-48); IMMATURE GRANULOCYTE ABSOLUTE 0.63 K/uL (0-1); LYMPHOCYTES # (AUTO) 0.7 K/uL (1.0-4.8); LYMPHOCYTES % (AUTO) 7.8 % (21.0-51.0); MEAN CORPUSCULAR HEMOGLOBIN 30.1 pg (27.0-33.0); MEAN CORPUSCULAR HGB CONC 31.9 g/dL (32.0-36.0); MEAN CORPUSCULAR VOLUME 94.5 fL (79-99); MONOCYTES # (AUTO) 0.8 K/uL (0.1-1.0); MONOCYTES % (AUTO) 9.2 % (3.0-13.0); NEUTROPHILS # (AUTO) 6.8 K/uL (1.8-7.7); NEUTROPHILS % (AUTO) 74.3 % (40.0-77.0); PLATELET COUNT (AUTO) 298 K/uL (130-400); RED BLOOD CELL COUNT(AUTO) 2.89 MIL/uL (4.00-5.50); RED CELL DISTRIBUTION WIDTH 13.9 % (11.0-15.5); WHITE BLOOD COUNT (AUTO) 9.1 K/uL (4.8-10.8)
[2023-06-11 04:13] LABS: CREATININE 1.2 mg/dL (0.5-1.5)
[2023-06-11] MEDS: METOPROLOL TARTRATE 50 MG TAB PO SCH ×2 (05:47→17:10)
[2023-06-11] MEDS: METRONIDAZOLE 500 MG TABLET PO SCH ×3 (05:47→20:36)
[2023-06-11] MEDS: PILOCARPINE HCL 5 MG TABLET PO SCH ×3 (08:57→20:34)
[2023-06-11] MEDS: DULOXETINE HCL 30 MG CAP PO SCH (08:57)
[2023-06-11] MEDS: LACTULOSE 20 GM/30 ML UDCUP PO SCH (08:57)
[2023-06-11] MEDS: CEFEPIME HCL 1 GM VIAL IVPB SCH (08:58)
[2023-06-11] MEDS: FAMOTIDINE 20MG TAB PO SCH (08:58)
[2023-06-11] MEDS: ENOXAPARIN SODIUM 30 MG/0.3 ML SQ SCH (08:58)
[2023-06-11] MEDS: NYSTATIN 15 GM POWDER TP SCH ×2 (08:59→20:37)
[2023-06-11] MEDS: ONDANSETRON 4MG INJ IVP PRN (13:05)
[2023-06-11] MEDS: TIZANIDINE HCL 2 MG TABLET PO SCH (20:34)
[2023-06-11] MEDS: CLONAZEPAM 0.5 MG TABLET PO SCH (22:00)
[2023-06-12] VITALS (10 sets, daily range): BP systolic 106–123; BP diastolic 51–68; PULSE 64–82; RESP 16–19; TEMP 97.3; O2SAT 94–99
[2023-06-12] MEDS: CLONAZEPAM 0.5 MG TABLET PO SCH ×2 (00:42→21:26)
[2023-06-12] MEDS: METRONIDAZOLE 500 MG TABLET PO SCH ×3 (06:17→21:26)
[2023-06-12] MEDS: METOPROLOL TARTRATE 50 MG TAB PO SCH ×2 (06:17→15:54)
[2023-06-12] MEDS: LACTULOSE 20 GM/30 ML UDCUP PO SCH ×2 (09:00→11:30)
[2023-06-12] MEDS: ENOXAPARIN SODIUM 30 MG/0.3 ML SQ SCH (09:19)
[2023-06-12] MEDS: NYSTATIN 15 GM POWDER TP SCH ×2 (09:19→21:26)
[2023-06-12] MEDS: DULOXETINE HCL 30 MG CAP PO SCH (09:20)
[2023-06-12] MEDS: ACETAMINOPHEN 325 MG TAB PO PRN ×2 (09:21→21:37)
[2023-06-12] MEDS: CEFEPIME HCL 1 GM VIAL IVPB SCH (09:24)
[2023-06-12] MEDS: FAMOTIDINE 20MG TAB PO SCH (09:25)
[2023-06-12] MEDS: PILOCARPINE HCL 5 MG TABLET PO SCH (09:25)
[2023-06-12] MEDS: ONDANSETRON 4MG INJ IVP PRN (10:25)
[2023-06-12] MEDS ORDERED: ONDANSETRON 4MG TABLET PO PRN (13:30)
[2023-06-12] MEDS: TIZANIDINE HCL 2 MG TABLET PO SCH (21:25)
[2023-06-12] MEDS: ACETAMINOPHEN WITH CODEINE 1 TAB TAB PO PRN (21:27)
[2023-06-13 00:53] VITALS: BP 124/74; PULSE 80; RESP 18
[2023-06-13 03:43] LABS: BASOPHILS # (AUTO) 0.04 K/uL (0.00-0.20); BASOPHILS % (AUTO) 0.4 % (0.0-5.0); EOSINOPHILS % (AUTO) 1.1 % (0.0-8.0); IMMATURE GRANULOCYTE ABSOLUTE 0.32 K/uL (0-1); LYMPHOCYTES # (AUTO) 0.8 K/uL (1.0-4.8); LYMPHOCYTES % (AUTO) 8.9 % (21.0-51.0); MEAN CORPUSCULAR HGB CONC 32.3 g/dL (32.0-36.0); MEAN CORPUSCULAR VOLUME 95.9 fL (79-99); MONOCYTES # (AUTO) 0.9 K/uL (0.1-1.0); MONOCYTES % (AUTO) 10.3 % (3.0-13.0); NEUTROPHILS # (AUTO) 6.9 K/uL (1.8-7.7); NEUTROPHILS % (AUTO) 75.8 % (40.0-77.0); PLATELET COUNT (AUTO) 228 K/uL (130-400); RED BLOOD CELL COUNT(AUTO) 2.71 MIL/uL (4.00-5.50); WHITE BLOOD COUNT (AUTO) 9.1 K/uL (4.8-10.8)
[2023-06-13 03:53] LABS: CREATININE 1.2 mg/dL (0.5-1.5); POTASSIUM 3.7 mmol/L (3.5-5.1)
[2023-06-13 04:14] VITALS: BP 106/58; PULSE 65; RESP 20
[2023-06-13] MEDS: METRONIDAZOLE 500 MG TABLET PO SCH ×2 (05:42→14:55)
[2023-06-13] MEDS: METOPROLOL TARTRATE 50 MG TAB PO SCH (05:42)
[2023-06-13] MEDS: ACETAMINOPHEN 325 MG TAB PO PRN (05:44)
[2023-06-13 08:00] VITALS: BP 100/53; PULSE 65; RESP 16; O2SAT 96
[2023-06-13] MEDS ORDERED: LACTULOSE 20 GM/30 ML UDCUP PO SCH (09:00)
[2023-06-13] MEDS: CEFEPIME HCL 1 GM VIAL IVPB SCH (09:55)
[2023-06-13] MEDS: FAMOTIDINE 20MG TAB PO SCH (09:56)
[2023-06-13] MEDS: DULOXETINE HCL 30 MG CAP PO SCH (09:56)
[2023-06-13] MEDS: ENOXAPARIN SODIUM 30 MG/0.3 ML SQ SCH (09:57)
[2023-06-13] MEDS: NYSTATIN 15 GM POWDER TP SCH (09:58)
[2023-06-13 12:00] VITALS: BP 127/66; PULSE 67; RESP 16
[2023-06-13] MEDS ORDERED: METO50TA18 PO (14:04)
== END 2023-06-13 17:30 | DRG 853 ==
LOC: EDH 19:22 → OBSVTOIN 21:55 → EDHIP 21:55 → 4DH 06-02 00:13 → 2AH 06-06 15:41 → 3CH 06-13 03:38
PROVIDERS: ADMIT Internal Medicine Pulmonary Disease; ATTEND Internal Medicine Pulmonary Disease
PROC: 5A09357 Assistance with Respiratory Ventilation, Less than 24 Consecutive Hours, Continuous Positive Airway Pressure (ICD-10-PCS; 2023-06-03)
PROC: 0U9M0ZZ Drainage of Vulva, Open Approach (ICD-10-PCS; principal; 2023-06-03 11:24)
PROC: 5A09357 Assistance with Respiratory Ventilation, Less than 24 Consecutive Hours, Continuous Positive Airway Pressure (ICD-10-PCS; 2023-06-05)
PROC: 5A09357 Assistance with Respiratory Ventilation, Less than 24 Consecutive Hours, Continuous Positive Airway Pressure (ICD-10-PCS; 2023-06-06)
PROC: 5A09357 Assistance with Respiratory Ventilation, Less than 24 Consecutive Hours, Continuous Positive Airway Pressure (ICD-10-PCS; 2023-06-07)
PROC: 5A09357 Assistance with Respiratory Ventilation, Less than 24 Consecutive Hours, Continuous Positive Airway Pressure (ICD-10-PCS; 2023-06-08)
PROC: 02HV33Z Insertion of Infusion Device into Superior Vena Cava, Percutaneous Approach (ICD-10-PCS; 2023-06-08)
PROC: B548ZZA Ultrasonography of Superior Vena Cava, Guidance (ICD-10-PCS; 2023-06-08)
PROC: 5A09357 Assistance with Respiratory Ventilation, Less than 24 Consecutive Hours, Continuous Positive Airway Pressure (ICD-10-PCS; 2023-06-09)
PROC: 5A09357 Assistance with Respiratory Ventilation, Less than 24 Consecutive Hours, Continuous Positive Airway Pressure (ICD-10-PCS; 2023-06-10)
PROC: 5A09357 Assistance with Respiratory Ventilation, Less than 24 Consecutive Hours, Continuous Positive Airway Pressure (ICD-10-PCS; 2023-06-12)
PROC: 5A09357 Assistance with Respiratory Ventilation, Less than 24 Consecutive Hours, Continuous Positive Airway Pressure (ICD-10-PCS; 2023-06-13)
DX: A41.50 Gram-negative sepsis, unspecified (principal); G92.8 Other toxic encephalopathy; J96.01 Acute respiratory failure with hypoxia; N17.0 Acute kidney failure with tubular necrosis; N15.1 Renal and perinephric abscess; L02.215 Cutaneous abscess of perineum; L03.315 Cellulitis of perineum; N30.00 Acute cystitis without hematuria; E87.21 Acute metabolic acidosis; E72.20 Disorder of urea cycle metabolism, unspecified; E87.1 Hypo-osmolality and hyponatremia; E44.0 Moderate protein-calorie malnutrition; K61.1 Rectal abscess; N76.4 Abscess of vulva; Z68.41 Body mass index [BMI] 40.0-44.9, adult; Z20.822 Contact with and (suspected) exposure to COVID-19; B96.6 Bacteroides fragilis [B. fragilis] as the cause of diseases classified elsewhere; I12.9 Hypertensive chronic kidney disease with stage 1 through stage 4 chronic kidney disease, or unspecified chronic kidney disease; N18.9 Chronic kidney disease, unspecified; E83.42 Hypomagnesemia; E11.65 Type 2 diabetes mellitus with hyperglycemia; E11.22 Type 2 diabetes mellitus with diabetic chronic kidney disease; E66.01 Morbid (severe) obesity due to excess calories; D64.9 Anemia, unspecified; G47.33 Obstructive sleep apnea (adult) (pediatric); E78.00 Pure hypercholesterolemia, unspecified; Z74.01 Bed confinement status; Z79.2 Long term (current) use of antibiotics; Z79.899 Other long term (current) drug therapy; Z82.49 Family history of ischemic heart disease and other diseases of the circulatory system; Z83.3 Family history of diabetes mellitus; Z90.710 Acquired absence of both cervix and uterus; Z79.84 Long term (current) use of oral hypoglycemic drugs
CPT/HCPCS: 36415; 36600; 70450; 71045; 74018; 74160; 74176; 78582; 80048; 80053; 80202; 81001; 82140; 82435; 82550; 82803; 82947; 82948; 83540; 83550; 83605; 83735; 83880; 84100; 84132; 84145; 84295; 84484; 85018; 85025; 85027; 85378; 85610; 85730; 86850; 86900; 86901; 87040; 87070; 87076; 87088; 87205; 87635; 87804; 93005; 93970; 94640; 94660; 96365; 96375; A4344; A9540; A9558; C1894; G0378; J0692; J1650; J1940; J2001; J2020; J2250; J2270; J2405; J2543; J2704; J2710; J2765; J2930; J3010; J3370; J3475; J3490; J7030; J7120; Q9967; A4216; A4222; A4223; A4600; A4930; A6210; A9272

== ENCOUNTER → 2023-08-15 | Outpatient (CLI) | payer OTHER ==
[~2023-08-15] MED LIST changes: +CLON0.122 PO; -CLON0.5T4 PO; -FOLI0.8T3 PO; +HYDR200T75 PO; -LEFL20TA18 PO; -LOSA100T59 PO; -MAG OXIDE PO; -OMEP20CA12 PO; -PILOCARPINE; +PILOCARPINE PO; -SULF1TAB42 PO; -TOFA11TA PO
== END | disposition home or self-care (01) ==
LOC: RAH 14:25
PROVIDERS: ATTEND Internal Medicine
DX: M19.011 Primary osteoarthritis, right shoulder (principal); M17.12 Unilateral primary osteoarthritis, left knee; M79.89 Other specified soft tissue disorders; M25.511 Pain in right shoulder; M25.462 Effusion, left knee
CPT/HCPCS: 73030; 73562

== ENCOUNTER 2024-01-02 18:04 | Inpatient (IN) | payer OTHER ==
[~2024-01-02] VITALS: Ht 162.6 cm; Wt 95.3 kg
[2024-01-02 19:25] LABS: BASOPHILS # (AUTO) 0.04 K/uL (0.00-0.20); BASOPHILS % (AUTO) 0.4 % (0.0-5.0); EOSINOPHILS # (AUTO) 0.11 K/uL (0.00-0.70); EOSINOPHILS % (AUTO) 1.2 % (0.0-8.0); HEMATOCRIT 32.6 % (36-48); IMMATURE GRANULOCYTE ABSOLUTE 0.04 K/uL (0-1); LYMPHOCYTES # (AUTO) 0.6 K/uL (1.0-4.8); MEAN CORPUSCULAR HEMOGLOBIN 29.7 pg (27.0-33.0); MEAN CORPUSCULAR HGB CONC 33.4 g/dL (32.0-36.0); MEAN CORPUSCULAR VOLUME 88.8 fL (79-99); MONOCYTES # (AUTO) 0.7 K/uL (0.1-1.0); NEUTROPHILS # (AUTO) 7.9 K/uL (1.8-7.7); PLATELET COUNT (AUTO) 272 K/uL (130-400); RED BLOOD CELL COUNT(AUTO) 3.67 MIL/uL (4.00-5.50); RED CELL DISTRIBUTION WIDTH 14.8 % (11.0-15.5); WHITE BLOOD COUNT (AUTO) 9.3 K/uL (4.8-10.8)
[2024-01-02 19:32] LABS: POTASSIUM 4.2 mmol/L (3.5-5.1)
[2024-01-02 19:45] LABS: ALBUMIN 3.5 g/dL (3.5-5.0); BILIRUBIN,TOTAL 0.8 mg/dL (0.2-1.0); TOTAL PROTEIN, SERUM 6.7 g/dL (6.0-8.3)
[2024-01-02] MEDS: MORPHINE 2 MG SYG IVP ONE (23:58)
[2024-01-02] MEDS: 0.9%NACL 1000ML 1,000 ML IV ONE (23:58)
[2024-01-03] VITALS (11 sets, daily range): BP systolic 121–142; BP diastolic 68–97; PULSE 83–116; RESP 16–20; O2SAT 92–100
[2024-01-03] MEDS ORDERED: ONDANSETRON 4MG INJ IVP PRN (01:00)
[2024-01-03] MEDS ORDERED: LABETALOL 20MG SYG IV PRN (01:00)
[2024-01-03] MEDS ORDERED: LACTULOSE 20 GM/30 ML UDCUP PO PRN (01:00)
[2024-01-03] MEDS ORDERED: HYDRALAZINE 20MG/ML VIAL IV PRN (01:00)
[2024-01-03 01:40] LABS: INR <= 0.93 (0.85-1.15); PROTHROMBIN TIME 10.8 SEC (9.6-11.6)
[2024-01-03 01:41] LABS: PARTIAL THROMBOPLASTIN TIME 29.3 SEC (26.3-35.5)
[2024-01-03] MEDS: 0.9%NACL 1000ML 1,000 ML IV SCH (01:57)
[2024-01-03] MEDS: DOXYCYCLINE 100MG+NS 250ML IV SCH (01:57)
[2024-01-03] MEDS: CEFTRIAXONE 1G VIAL IV SCH (01:58)
[2024-01-03] MEDS: LIDOCAINE 5% TOPICAL PATCH TP SCH (02:23)
[2024-01-03] MEDS ORDERED: TIZA-211 PO (04:36)
[2024-01-03] MEDS ORDERED: METO50TA18 PO (04:40)
[2024-01-03] MEDS ORDERED: TRAZ-185 PO (04:40)
[2024-01-03] MEDS ORDERED: TOFA11TA PO (04:40)
[2024-01-03] MEDS ORDERED: HYDR12.54 PO (04:40)
[2024-01-03 06:11] LABS: BASOPHILS # (AUTO) 0.04 K/uL (0.00-0.20); BASOPHILS % (AUTO) 0.5 % (0.0-5.0); EOSINOPHILS # (AUTO) 0.18 K/uL (0.00-0.70); EOSINOPHILS % (AUTO) 2.4 % (0.0-8.0); HEMATOCRIT 32.7 % (36-48); IMMATURE GRANULOCYTE ABSOLUTE 0.03 K/uL (0-1); LYMPHOCYTES # (AUTO) 0.8 K/uL (1.0-4.8); LYMPHOCYTES % (AUTO) 9.8 % (21.0-51.0); MEAN CORPUSCULAR HEMOGLOBIN 29.9 pg (27.0-33.0); MEAN CORPUSCULAR HGB CONC 31.8 g/dL (32.0-36.0); MONOCYTES # (AUTO) 0.7 K/uL (0.1-1.0); MONOCYTES % (AUTO) 9.3 % (3.0-13.0); NEUTROPHILS # (AUTO) 5.9 K/uL (1.8-7.7); NEUTROPHILS % (AUTO) 77.6 % (40.0-77.0); PLATELET COUNT (AUTO) 234 K/uL (130-400); RED BLOOD CELL COUNT(AUTO) 3.48 MIL/uL (4.00-5.50); RED CELL DISTRIBUTION WIDTH 15.2 % (11.0-15.5); WHITE BLOOD COUNT (AUTO) 7.6 K/uL (4.8-10.8)
[2024-01-03 06:26] LABS: CREATININE 0.9 mg/dL (0.5-1.0); MAGNESIUM 1.4 mg/dL (1.80-2.40); PHOSPHORUS 3.3 mg/dL (2.5-4.9); POTASSIUM 3.8 mmol/L (3.5-5.1)
[2024-01-03] MEDS: DOCUSATE SODIUM 100 MG CAP PO SCH (08:56)
[2024-01-03] MEDS: PANTOPRAZOLE 40 MG TAB DR PO SCH (08:56)
[2024-01-03 11:49] LABS: MYCOPLASMA AB IGM NEGATIVE (NEGATIVE)
[2024-01-03] MEDS: ACETAMINOPHEN 325 MG TAB PO PRN (12:00)
[2024-01-03 13:05] LABS: SARS-CoV-2, RNA, NAAT NEGATIVE SARS CoV-2 (NEGATIVE)
[2024-01-03 13:10] LABS: INFLUENZA TYPE A Negative For Type A (NEGATIVE)
[2024-01-03 13:18] LABS: INFLUENZA TYPE B Positive For Type B (NEGATIVE)
[2024-01-03] MEDS: GABAPENTIN 100 MG CAPSULE PO PRN (18:55)
[2024-01-03 22:16] LABS: APPEARANCE,URINE CLOUDY (CLEAR); BILIRUBIN,URINE NEGATIVE (NEGATIVE); COLOR,URINE LIGHT-YELLOW (YELLOW); GLUCOSE, URINE (UA) NEGATIVE (NEGATIVE); KETONES,URINE NEGATIVE (NEGATIVE); LEUKOCYTE ESTERASE ,URINE 250 Leu/uL (NEGATIVE); NITRATE,URINE NEGATIVE (NEGATIVE); OCCULT BLOOD,URINE NEGATIVE (NEGATIVE); PH,URINE 5.5 (5.0-8.0); PROTEIN,URINE 10 mg/dL (NEGATIVE); UROBILINOGEN,URINE 0.2 mg/dL (0.2-1.0)
[2024-01-03 22:18] LABS: ADD UA MICROSCOPIC YES
[2024-01-03 22:21] LABS: BACTERIA,URINE RARE /HPF (None Seen); MUCUS,URINE RARE LPF (None Seen); SQUAMOUS EPITHELIAL CELL,UR FEW /HPF (0-2); WBC,URINE 26-50 /HPF (0-1)
[2024-01-04] VITALS (9 sets, daily range): BP systolic 137–156; BP diastolic 71–89; PULSE 71–120; RESP 16–20; O2SAT 94–98
[2024-01-04 04:50] LABS: HEMATOCRIT 32.5 % (36-48); MEAN CORPUSCULAR HEMOGLOBIN 30.1 pg (27.0-33.0); MEAN CORPUSCULAR VOLUME 94.2 fL (79-99); RED BLOOD CELL COUNT(AUTO) 3.45 MIL/uL (4.00-5.50); RED CELL DISTRIBUTION WIDTH 15.4 % (11.0-15.5); WHITE BLOOD COUNT (AUTO) 7.1 K/uL (4.8-10.8)
[2024-01-04 05:19] LABS: CREATININE 0.9 mg/dL (0.5-1.0); MAGNESIUM 1.2 mg/dL (1.80-2.40); PHOSPHORUS 3.6 mg/dL (2.5-4.9); POTASSIUM 3.8 mmol/L (3.5-5.1)
[2024-01-04] MEDS: OSELTAMIVIR PHOSPHATE 75 MG CAP PO SCH (08:09)
[2024-01-04] MEDS: CEFTRIAXONE 2GM VIAL IVPB SCH (08:10)
[2024-01-04] MEDS: MAGNESIUM 2GM PREMIX 50ML 50 ML IV PRN (12:51)
[2024-01-05] VITALS (14 sets, daily range): BP systolic 117–155; BP diastolic 60–85; PULSE 68–110; RESP 16–34; O2SAT 92–100
[2024-01-05] MEDS: GUAIFENESIN/DEXTROMETHORPHAN 1 EACH TAB.SR.12H PO PRN (02:22)
[2024-01-05 05:03] LABS: HEMATOCRIT 28.9 % (36-48); MEAN CORPUSCULAR HEMOGLOBIN 29.8 pg (27.0-33.0); MEAN CORPUSCULAR HGB CONC 31.8 g/dL (32.0-36.0); MEAN CORPUSCULAR VOLUME 93.5 fL (79-99); RED BLOOD CELL COUNT(AUTO) 3.09 MIL/uL (4.00-5.50); RED CELL DISTRIBUTION WIDTH 15.5 % (11.0-15.5); WHITE BLOOD COUNT (AUTO) 6.1 K/uL (4.8-10.8)
[2024-01-05 05:22] LABS: MAGNESIUM 2.2 mg/dL (1.80-2.40); PHOSPHORUS 3.1 mg/dL (2.5-4.9); POTASSIUM 3.6 mmol/L (3.5-5.1)
[2024-01-05] MEDS: ALBUTEROL 0.083% 2.5 MG/3 ML INH IH PRN (15:40)
[2024-01-05 16:00] LABS: ABG BASE EXCESS -5.2 mmol/L (-2.0-3.0); ABG OXYGEN SATURATION 95.3 % (95.0-99.0); ABG PCO2 43 mmHg (32-45); ABG PH 7.306 (7.35-7.450); DEVICE COMMENT LR; PO2, ARTERIAL BG 83.6 mmHg (83.0-108.0); VENT MODE, BG NC (ROOM AIR)
[2024-01-05] MEDS: FUROSEMIDE 40MG VIAL IV ONE (16:13)
[2024-01-05] MEDS: SOLU-MEDROL 40MG VIAL IVP SCH (17:05)
[2024-01-05 19:37] LABS: ABG BASE EXCESS -7.3 mmol/L (-2.0-3.0); ABG OXYGEN SATURATION 91.8 % (95.0-99.0); ABG PCO2 36 mmHg (32-45); ABG PH 7.313 (7.35-7.450); PO2, ARTERIAL BG 66.8 mmHg (83.0-108.0); VENT MODE, BG RA,21 (ROOM AIR)
[2024-01-05] MEDS: SODIUM BICARB 50MEQ 50ML VIAL IV ONE (20:16)
[2024-01-05] MEDS ORDERED: IOHEXOL 350 MG/ML 100ML INFUS..BTL IV ONE (22:58)
[2024-01-06] VITALS (13 sets, daily range): BP systolic 111–155; BP diastolic 54–88; PULSE 60–101; RESP 16–24; O2SAT 97–99
[2024-01-06] MEDS: FUROSEMIDE 40MG VIAL IV SCH (03:31)
[2024-01-06 05:09] LABS: ABG BASE EXCESS -1.5 mmol/L (-2.0-3.0); ABG HCO3 25.5 mmol/L (21.0-28.0); ABG OXYGEN SATURATION 93.1 % (95.0-99.0); ABG PCO2 52 mmHg (32-45); PO2, ARTERIAL BG 72.6 mmHg (83.0-108.0); VENT MODE, BG BIPAP 10-5 (ROOM AIR)
[2024-01-06 06:00] LABS: HEMATOCRIT 33.3 % (36-48); MEAN CORPUSCULAR HEMOGLOBIN 30.1 pg (27.0-33.0); MEAN CORPUSCULAR HGB CONC 32.4 g/dL (32.0-36.0); MEAN CORPUSCULAR VOLUME 92.8 fL (79-99); RED BLOOD CELL COUNT(AUTO) 3.59 MIL/uL (4.00-5.50); RED CELL DISTRIBUTION WIDTH 15.3 % (11.0-15.5); WHITE BLOOD COUNT (AUTO) 5.6 K/uL (4.8-10.8)
[2024-01-06 06:27] LABS: CREATININE 0.8 mg/dL (0.5-1.0); MAGNESIUM 1.5 mg/dL (1.80-2.40); PHOSPHORUS 3.5 mg/dL (2.5-4.9); POTASSIUM 3.9 mmol/L (3.5-5.1)
[2024-01-06] MEDS: IPRATROPIUM/ALBUTEROL SULFATE 3 ML SOLUTION IH SCH (11:07)
[2024-01-06] MEDS: IPRATROPIUM/ALBUTEROL SULFATE 3 ML SOLUTION IH ONE (11:08)
[2024-01-06] MEDS: ZOSYN 3.375GM +NS 50ML IV SCH (15:21)
[2024-01-06 16:15] LABS: CHLAM.PNEUMONIAE IGM TITER <1:10 (Neg:<1:10)
[2024-01-06] MEDS: SOLU-MEDROL 40MG VIAL IVP SCH (20:57)
[2024-01-07] VITALS (20 sets, daily range): BP systolic 115–149; BP diastolic 44–65; PULSE 76–100; RESP 18–31; O2SAT 96–100
[2024-01-07] MEDS: ZOSYN 3.375GM +NS 50ML IV SCH (00:17)
[2024-01-07] MEDS: BENZONATATE 100 MG CAPSULE PO PRN (10:00)
[2024-01-07 10:44] LABS: CREATININE 1.5 mg/dL (0.5-1.0); MAGNESIUM 1.1 mg/dL (1.80-2.40)
[2024-01-07 10:56] LABS: POTASSIUM 2.8 mmol/L (3.5-5.1)
[2024-01-07] MEDS ORDERED: POTASSIUM CHLORIDE 10% ELIXIR 20 MEQ/15 ML UDCUP PO PRN (11:30)
[2024-01-07] MEDS ORDERED: POTASSIUM CHLORIDE 20MEQ/100ML 100 ML IV PRN (11:30)
[2024-01-07] MEDS: KCL 20 MEQ ERTAB PO PRN (12:35)
[2024-01-07] MEDS: CEFEPIME HCL 1 GM VIAL IVPB SCH (17:30)
[2024-01-08] VITALS (13 sets, daily range): BP systolic 135–148; BP diastolic 58–74; PULSE 75–93; RESP 16–23; O2SAT 96–100
[2024-01-08] MEDS: FUROSEMIDE 20MG VIAL IV SCH (05:49)
[2024-01-08 10:33] LABS: CREATININE 1.4 mg/dL (0.5-1.0); POTASSIUM 4.5 mmol/L (3.5-5.1)
[2024-01-09] VITALS (8 sets, daily range): BP systolic 112–155; BP diastolic 62–73; PULSE 74–120; RESP 18–28; O2SAT 95–100
[2024-01-09 04:50] LABS: HEMATOCRIT 27.9 % (36-48); IMMATURE GRANULOCYTE ABSOLUTE 0.03 K/uL (0-1); LYMPHOCYTES # (AUTO) 0.5 K/uL (1.0-4.8); LYMPHOCYTES % (AUTO) 7.3 % (21.0-51.0); MEAN CORPUSCULAR HEMOGLOBIN 29.5 pg (27.0-33.0); MEAN CORPUSCULAR VOLUME 89.4 fL (79-99); MONOCYTES # (AUTO) 0.3 K/uL (0.1-1.0); MONOCYTES % (AUTO) 4.8 % (3.0-13.0); NEUTROPHILS # (AUTO) 5.7 K/uL (1.8-7.7); NEUTROPHILS % (AUTO) 87.4 % (40.0-77.0); PLATELET COUNT (AUTO) 245 K/uL (130-400); RED BLOOD CELL COUNT(AUTO) 3.12 MIL/uL (4.00-5.50); RED CELL DISTRIBUTION WIDTH 15.5 % (11.0-15.5); WHITE BLOOD COUNT (AUTO) 6.5 K/uL (4.8-10.8)
[2024-01-09 05:00] LABS: CREATININE 1.6 mg/dL (0.5-1.0)
[2024-01-09] MEDS ORDERED: Cefepime Hcl IVPB (10:30)
[2024-01-09] MEDS ORDERED: GABA100C PO (10:30)
[2024-01-09] MEDS ORDERED: ALBU2.5V2 IH (10:30)
[2024-01-09] MEDS ORDERED: PANT40TA PO (10:30)
[2024-01-09] MEDS ORDERED: BENZ-226 PO (10:30)
== END 2024-01-09 16:10 | DRG 557 ==
LOC: EDH 18:04 → OBSVTOIN 01-03 00:35 → EDHIP 01-03 00:35 → 3AH 01-03 03:17
PROVIDERS: ADMIT Internal Medicine Critical Care Medicine; ATTEND Internal Medicine Critical Care Medicine
PROC: 5A09357 Assistance with Respiratory Ventilation, Less than 24 Consecutive Hours, Continuous Positive Airway Pressure (ICD-10-PCS; principal; 2024-01-05)
PROC: 5A09357 Assistance with Respiratory Ventilation, Less than 24 Consecutive Hours, Continuous Positive Airway Pressure (ICD-10-PCS; 2024-01-06)
PROC: 5A09357 Assistance with Respiratory Ventilation, Less than 24 Consecutive Hours, Continuous Positive Airway Pressure (ICD-10-PCS; 2024-01-07)
PROC: 5A09357 Assistance with Respiratory Ventilation, Less than 24 Consecutive Hours, Continuous Positive Airway Pressure (ICD-10-PCS; 2024-01-09)
DX: M62.82 Rhabdomyolysis (principal); J10.08 Influenza due to other identified influenza virus with other specified pneumonia; J15.8 Pneumonia due to other specified bacteria; J44.0 Chronic obstructive pulmonary disease with (acute) lower respiratory infection; E86.0 Dehydration; N18.9 Chronic kidney disease, unspecified; F41.9 Anxiety disorder, unspecified; I12.9 Hypertensive chronic kidney disease with stage 1 through stage 4 chronic kidney disease, or unspecified chronic kidney disease; Z96.653 Presence of artificial knee joint, bilateral; R09.02 Hypoxemia; E66.9 Obesity, unspecified; M06.9 Rheumatoid arthritis, unspecified; E78.00 Pure hypercholesterolemia, unspecified; Z79.899 Other long term (current) drug therapy; Z83.3 Family history of diabetes mellitus; Z82.49 Family history of ischemic heart disease and other diseases of the circulatory system; Z90.710 Acquired absence of both cervix and uterus; Z68.36 Body mass index [BMI] 36.0-36.9, adult
CPT/HCPCS: 36415; 36600; 70450; 71045; 71270; 72128; 72131; 73030; 73522; 80048; 80053; 81001; 82550; 82803; 83605; 83735; 83880; 84100; 84132; 84145; 84484; 85025; 85027; 85378; 85610; 85651; 85730; 86140; 86632; 86738; 87040; 87086; 87449; 87635; 87804; 93005; 93306; 94640; 94660; 94664; 94667; 94668; 94760; G0378; J0692; J0696; J1940; J2270; J2543; J2920; J3475; J3490; Q9967